=== PATIENT | male | born 1975 | race Caucasian/White ===

== ENCOUNTER 2017-10-27 18:43 | Emergency (ER) | payer MEDICAID ==
--- NOTE | 2017-10-27 20:00 | ED Physician Chart ---
ED Chief Complaint/HPI - Patient Information Date Seen:: 10/27/17 Time Seen:: 19:45 Chief Complaint:: fall in shower back pain History of Present Illness:: 42 yr old male who slipped fell in shower with back pain 10 /10 sharp stabbing no numbness tingling bowel or bladder problems just before arrival cam with girlfriend in private car Allergies:: Allergies Allergy/AdvReac Type Severity Reaction Status Date / Time No Known Allergies Allergy Verified 10/27/17 18:59 Vitals:: Vital Signs - 8 hr 10/27/17 18:52 HR 103 BP 133/76 O2 Sat % 99 ED Review of Systems - Review of Systems General/Constitutional: No fever, No chills, No weight loss, No weakness, No diaphoresis, No edema, No loss of appetite Musculoskeletal: Back pain ED Past Medical History - Past Medical History Past Medical History: No significant medical hx Family Medical History - Family Member Mother History Unknown: Yes ED Physical Exam - Physical Examination General/Constitutional: Awake, Well-developed, well-nourished, Alert, No distress, GCS 15, Non-toxic appearing, Ambulatory Head: Atraumatic Eyes: Lids, conjuctiva normal, PERRL, EOMI Skin: Nl inspection, No rash, No skin lesions, No ecchymosis, Well hydrated, No lymphadenopathy ENMT: External ears, nose nl, Nasal exam nl, Lips, teeth, gums nl Neck: Nontender, Full ROM w/o pain, No JVD, No nuchal rigidity, No bruit, No mass, No stridor Respiratory: Nl effort/Exclusion, Clear to Auscultation, No Wheeze/Rhonchi/Rales Cardio Vascular: RRR, No murmur, gallop, rubs, NL S1 S2 GI: No tenderness/rebounding/guarding, No organomegaly, No hernia, Normal BS's, Nondistended, No mass/bruits, No McBurney tenderness : No CVA tenderness Extremities: No tenderness or effusion, Full ROM, normal strength in all extremities, No edema, Normal digits & nails Neuro/Psych: Alert/oriented, DTR's symmetric, Normal sensory exam, Normal motor strength, Judgement/insight normal, Mood normal, Normal gait, No focal deficits Misc: Normal back (paraspinal muscle tenderness) ED Assessment - Assessment General Assessment: lumbago ED Septic Shock - . Is Septic Shock (SBP<90, OR Lactate>4 mmol\L) present?: No - <6hrs of presentation: Vital Signs: Vital Signs - 8 hr 10/27/17 18:52 HR 103 BP 133/76 O2 Sat % 99 ED Reassessment (Disposition) - Reassessment Reassessment:: low back sprain s/p slip and fall in shower Reassessment Condition:: Improved - Aftercare/Follow up Instructions Aftercare/Follow-Up Instructions:: Counseled pt regarding lab results/diagnosis & need follow up - Patient Disposition Discharge/Transfer:: Home
--- NOTE | 2017-10-28 10:24 | Diagnostic Imaging Report ---
Exam: CT examination of the lumbar sacral spine. HISTORY: Back pain status post fall. Total DLP equals 1022 CTDI equals 37.3 Findings: Multiple contiguous thin section of the lumbosacral spine were performed the without administration of contrast material in the plane with coronal sagittal reconstruction technique. No prior studies available comparison. The study demonstrates complex fracture with displacement of the vertical component involving the L2 vertebral body extending the posterior cortex with 3 mm retropulsion. The findings suggestive of hyperflexion injury. MRI examination might be helpful for further evaluation of the spinal cord. The remaining vertebral bodies of normal height with preserved intervertebral disc spaces. The posterior elements are intact. The pedicles are normal. IMPRESSION: Complex fracture of the L2 lumbar vertebra. MRI examination recommended.
== END 2017-10-28 00:03 | disposition home or self-care (01) ==
LOC: ER 18:43
DX: S33.5XXA Sprain of ligaments of lumbar spine, initial encounter (principal); W01.0XXA Fall on same level from slipping, tripping and stumbling without subsequent striking against object, initial encounter; Y93.E1 Activity, personal bathing and showering; Y92.89 Other specified places as the place of occurrence of the external cause; Y99.8 Other external cause status
CPT/HCPCS: 99284; 96372; 72131; J1885; Z7502

== ENCOUNTER 2018-12-01 16:31 | Emergency (ER) | payer MEDICAID ==
--- NOTE | 2018-12-01 17:01 | ED Physician Chart ---
ED Chief Complaint/HPI - Patient Information Date Seen:: 12/01/18 Time Seen:: 16:59 Chief Complaint:: red streak on the lower leg History of Present Illness:: this is a 43 yo male who is concerned about a red tender streak on the anterior part of the lower leg. he denies all other symptoms. he states that he has had cellulitis of his lower leg in the past and that is how it starts. he denies fever, rash or nausea. Allergies:: Allergies Allergy/AdvReac Type Severity Reaction Status Date / Time No Known Allergies Allergy Verified 10/27/17 18:59 Vitals:: Vital Signs - 8 hr 12/01/18 16:41 Temp 98.5 F HR 84 RR 15 BP 127/65 O2 Sat % 98 Historian:: Patient Review:: Nurse's Note Reviewed, Old Chart Reviewed ED Review of Systems - Review of Systems General/Constitutional: No fever, No chills, No weight loss, No weakness, No diaphoresis, No edema, No loss of appetite Skin: No skin lesions, No rash, No bruising, Other (red, tender streak on the left lower leg.) Head: No headache, No light-headedness Eyes: No loss of vision, No pain, No diplopia ENT: No earache, No nasal drainage, No sore throat, No tinnitus Neck: No neck pain, No swelling, No thyromegaly, No stiffness, No mass noted Cardio Vascular: No chest pain, No palpitations, No PND, No orthopnea, No edema Pulmonary: No SOB, No cough, No sputum, No wheezing GI: No nausea, No vomiting, No diarrhea, No pain, No melena, No hematochezia, No constipation, No hematemesis G/U: No dysuria, No frequency, No hematuria Musculoskeletal: No bone or joint pain, No back pain, No muscle pain Endocrine: No polyuria, No polydipsia Psychiatric: No prior psych history, No depression, No anxiety, No suicidal ideation Hematopoietic: No bruising, No lymphadenopathy Allergic/Immuno: No urticaria, No angioedema Neurological: No syncope, No focal symptoms, No weakness, No paresthesia, No headache, No seizure, No dizziness, No confusion, No vertigo ED Past Medical History - Past Medical History Obtainable: Yes Past Medical History: Other (fracture of the lower back) Family History: None Social History: Non Smoker, No Alcohol, No Drug Use, Employed Surgical History: None Family Medical History - Family Member Mother History Unknown: Yes Hx Family Cancer: No Hx Family Coronary Artery Disease: No Hx Family Congestive Heart Failure: No Hx Family Hypertension: No Hx Family Stroke: No Hx Family Seizures: No Hx Family Dementia: No Hx Family COPD: No Hx Family Hepatitis: No Other Medical History: diverticulitis ED Physical Exam - Physical Examination General/Constitutional: Awake, Well-developed, well-nourished, Alert, No distress, GCS 15, Non-toxic appearing, Ambulatory Head: Atraumatic Eyes: Lids, conjuctiva normal, PERRL, EOMI Skin: Nl inspection, No rash, No skin lesions, No ecchymosis, Well hydrated, No lymphadenopathy ENMT: External ears, nose nl, Nasal exam nl, Lips, teeth, gums nl Neck: Nontender, Full ROM w/o pain, No JVD, No nuchal rigidity, No bruit, No mass, No stridor Respiratory: Nl effort/Exclusion, Clear to Auscultation, No Wheeze/Rhonchi/Rales Cardio Vascular: RRR, No murmur, gallop, rubs, NL S1 S2 GI: No tenderness/rebounding/guarding, No organomegaly, No hernia, Normal BS's, Nondistended, No mass/bruits, No McBurney tenderness : No CVA tenderness Extremities: No tenderness or effusion (there is a red streak on the lower left anterior tibia area. the leg is not swollen and there is no calf tenderness.), Full ROM, normal strength in all extremities, No edema, Normal digits & nails Neuro/Psych: Alert/oriented, DTR's symmetric, Normal sensory exam, Normal motor strength, Judgement/insight normal, Mood normal, Normal gait, No focal deficits Misc: Normal back, No paraspinal tenderness ED Assessment - Assessment General Assessment: early vasculitis of the left lower extremity ED Septic Shock - . Is Septic Shock (SBP<90, OR Lactate>4 mmol\L) present?: No - <6hrs of presentation: Vital Signs: Vital Signs - 8 hr 12/01/18 16:41 Temp 98.5 F HR 84 RR 15 BP 127/65 O2 Sat % 98 ED Reassessment (Disposition) - Reassessment Reassessment Condition:: Unchanged - Diagnosis Diagnosis:: cellulitis of the left lower leg. - Aftercare/Follow up Instructions Aftercare/Follow-Up Instructions:: Counseled pt regarding lab results/diagnosis & need follow up, Refer to Discharge Instructions, Counseled pt & family regarding lab results/diagnosis & need follow up Notes:: to see his doctor on december 03 for a followup visit. Medication Prescribed:: z-[email or web address] bactrim ds - Patient Disposition Discharge/Transfer:: Home Condition at Disposition:: Improved
== END 2018-12-01 17:15 | disposition home or self-care (01) ==
LOC: ER 16:31
DX: L03.116 Cellulitis of left lower limb (principal)
CPT/HCPCS: 99283; 96372; J0696; Z7502